=== PATIENT | male | born 1960 | race Caucasian/White ===

== ENCOUNTER → 2020-11-03 | Day surgery (SDC) | payer OTHER ==
[2020-11-01 10:01] VITALS: BMI 20.3
[~2020-11-03] MED LIST: LACTATED RINGERS 1,000 ML IV ONE; LACTATED RINGERS 1,000 ML IV SCH; PROPOFOL 10 MG/ML 20 ML VIAL IV ONE
[2020-11-03 09:58] VITALS: TEMP 97.8
--- NOTE | 2020-11-03 11:19 | P.GSHP ---
History of Present Illness H&P Date: 11/03/20 Chief Complaint: Constipation This is a 60-year-old male with history constipation. Patient presents today for colonoscopy. Past Medical History Additional Past Medical History / Comment(s): diarrhea, low potassium, History of Any Multi-Drug Resistant Organisms: None Reported Additional Past Surgical History / Comment(s): surgery for rx pelvis, Past Anesthesia/Blood Transfusion Reactions: No Reported Reaction Smoking Status: Current every day smoker - Past Family History Mother Family Medical History: No Reported History Medications and Allergies Home Medications Medication Instructions Recorded Confirmed Type Potassium Chloride [Klor-Con 20] 20 meq PO DAILY 11/01/20 11/01/20 History Allergies Allergy/AdvReac Type Severity Reaction Status Date / Time No Known Allergies Allergy Verified 11/01/20 09:53 Surgical - Exam Vital Signs Temp Pulse Resp BP Pulse Ox 97.8 F 78 18 132/87 98 11/03/20 09:57 11/03/20 09:57 11/03/20 09:57 11/03/20 09:57 11/03/20 09:57 - General well developed, well nourished, no distress - Eyes PERRL - ENT normal pinna - Neck no masses - Respiratory normal expansion - Cardiovascular Rhythm: regular - Abdomen Abdomen: soft, non tender Assessment and Plan Assessment: Constipation, will Perform colonoscopy
--- NOTE | 2020-11-03 11:34 | P.OP ---
Date of Procedure: 11/03/20 Preoperative Diagnosis: Constipation Postoperative Diagnosis: Possible colonic stricture Procedure(s) Performed: Colonoscopy Anesthesia: MAC Surgeon: Cirilo See Pathology: none sent Condition: stable Disposition: PACU Description of Procedure: He received IV sedation. Digital rectal exam was performed which revealed possible stricture of the proximal rectum. The flexible colonoscope was then placed patient anus and passed in the rectum. The colonoscope could not be advanced. There appeared to be evidence of a stricture. At this point the colonoscope was withdrawn. Patient was scheduled for a barium enema
[2020-11-03 12:06] VITALS: RESP 16
[2020-11-03 12:22] VITALS: BP 120/81; PULSE 53
--- NOTE | 2020-11-03 14:10 | FL ---
EXAMINATION TYPE: FL barium enema w air contrast DATE OF EXAM: 11/03/2020 COMPARISON: NONE HISTORY: Failed colonoscopy TECHNIQUE: Fluoroscopy. FINDINGS: Attempted barium enema was performed however the patient was unable to retain the contrast material within the colon. The rectum was the only structure opacified. Examination therefore is nond iagnostic. IMPRESSION: Limited nondiagnostic evaluation as noted above.
== END ==
LOC: ORWHC2ENDO 09:43
PROVIDERS: ATTEND Surgery
DX: K59.00 Constipation, unspecified (principal); F17.210 Nicotine dependence, cigarettes, uncomplicated
CPT/HCPCS: 74280; 45330; J2704

== ENCOUNTER → 2020-11-23 | Outpatient (CLI) | payer OTHER ==
--- NOTE | 2020-11-23 18:22 | CT ---
EXAMINATION TYPE: CT abdomen pelvis w con DATE OF EXAM: 11/23/2020 COMPARISON: None INDICATION: Rectal stricture and abdominal distention. DLP: 531 mGycm, Automated exposure control for dose reduction was used. CONTRAST: 100ml mL of Isovue 300. Study performed with Oral Contrast TECHNIQUE: Axial images were obtained from above the diaphragm to the pubic rami in the axial plane a t 5 mm thick sections. Reconstructed images are reviewed on the computer in the coronal plane. FINDINGS: Limited CT sections are obtained the lung bases. The lung bases are clear. Small amount of reflux i nto the distal esophagus is evident. CT ABDOMEN: Prominent ascites is present throughout the abdomen. Liver: Normal Spleen: Normal Pancreas: Atrophic Adrenal glands: The adrenal glands are normal. Gallbladder: Normal Kidneys: No masses are evident. Mild left hydronephrosis may be present. No cysts are present. Delay ed images were obtained through the kidneys, which remain unremarkable. Aorta: Vascular calcification is within the aorta. Inferior vena cava: Normal. CT PELVIS: Appears to be some thickened small bowel loops within the right mid abdomen. Correlate for jejunitis. Dilated small bowel loops are not evident suggests obstruction. There may be some thickening of the sigmoid colon. Consider colitis within the differential. A focal stenosis at the rectosigmoid region is not identified There are loops of bowel which are incompletely distended or lack oral contrast bonner iting their evaluation. Appendix: Not identified. No suspicious inflammatory changes are identified Urinary bladder: Decompressed with limited evaluation Genitourinary structures: Prostate not identified. Osseous structures: No suspicious lytic or sclerotic lesions. IMPRESSIONS: 1. There appears to be some thickening of the jejunum was somewhat prominent loops of bowel with mor e normal caliber ileum with some thickened wall. Correlate for jejunitis. 2. Somewhat irregular possibly thickened sigmoid and descending colon. Obstruction however is not andrés ntified. 3. Extensive ascites. 4. A mild left hydronephrosis is not excluded.
== END | disposition home or self-care (01) ==
LOC: RADCTMAIN 13:22
PROVIDERS: ATTEND Surgery
DX: K59.89 Other specified functional intestinal disorders (principal); R18.8 Other ascites
CPT/HCPCS: 74177; Q9967

== ENCOUNTER 2020-12-07 12:37 | Day surgery (SDC) | payer OTHER ==
[2020-12-07 13:09] VITALS: RESP 16; TEMP 97.3
[2020-12-07 13:15] LABS: Mean Platelet Volume 7.7; Platelet Count 461 k/uL (150-450)
[2020-12-07 13:26] LABS: African American GFR (CKD) >90 (>60 ml/min/1.73 sqM); Non-African American GFR(CKD) >90 (>60 ml/min/1.73 sqM)
[2020-12-07] MEDS: ALBUMIN HUMAN 25% 50 ML in EMPTY BAG 1 BAG IVPB SCH ×4 (13:59→15:00)
[2020-12-07 16:05] VITALS: BP 119/69; PULSE 75
--- NOTE | 2020-12-07 16:22 | US ---
EXAMINATION TYPE: US paracentesis abd w/image DATE OF EXAM: 12/07/2020 COMPARISON: NONE HISTORY: Ascites. PROCEDURE: Maximal barrier technique was utilized. The skin overlying a suitable pocket of fluid was localized with ultrasound and the overlying skin was prepped and draped. Ultrasound was utilized with sterile technique. Lidocaine was used for local anesthesia and a skin ervin made with a scalpel. Catheter was advanced under direct ultrasound guidance into a suitable pocket of fluid and approximately 7.9 liter s of serous fluid were removed. Catheter was withdrawn and hemostasis achieved. There is no immedia te complication; the patient is discharged in stable condition. IMPRESSION: STATUS POST ULTRASOUND GUIDED PARACENTESIS FOR PALLIATION OF ASCITES. THIS PROCEDURE WA S PERFORMED BY THE UNDERSIGNED.
== END 2020-12-07 15:20 | disposition home or self-care (01) ==
LOC: RADPROMAIN 12:37
PROVIDERS: ATTEND Surgery
DX: R18.8 Other ascites (principal)
CPT/HCPCS: 82565; 85049; 85610; 36415; 49083; P9047

== ENCOUNTER 2020-12-19 13:07 | Day surgery (SDC) | payer OTHER ==
[2020-12-19 13:41] LABS: Mean Platelet Volume 7.9; Platelet Count 351 k/uL (150-450)
[2020-12-19 13:48] LABS: African American GFR (CKD) >90 (>60 ml/min/1.73 sqM); Non-African American GFR(CKD) >90 (>60 ml/min/1.73 sqM)
[2020-12-19 13:53] VITALS: TEMP 98.4
[2020-12-19 14:01] LABS: Prothrombin Time 10.3 sec (9.0-12.0)
[2020-12-19 14:21] VITALS: RESP 16
[2020-12-19] MEDS: ALBUMIN HUMAN 25% 50 ML in EMPTY BAG 1 BAG IVPB SCH ×3 (14:22→14:53)
[2020-12-19 15:50] VITALS: BP 107/73; PULSE 78
--- NOTE | 2020-12-19 16:37 | US ---
EXAMINATION TYPE: US paracentesis abd w/image DATE OF EXAM: 12/19/2020 COMPARISON: NONE HISTORY: Ascites. PROCEDURE: Maximal barrier technique was utilized. The skin overlying a suitable pocket of fluid was localized with ultrasound and the overlying skin was prepped and draped. Ultrasound was utilized with sterile technique. Lidocaine was used for local anesthesia and a skin ervin made with a scalpel. Catheter was advanced under direct ultrasound guidance into a suitable pocket of fluid and approximately 7.9 liter s of serous fluid were removed. Catheter was withdrawn and hemostasis achieved. There is no immedia te complication; the patient is discharged in stable condition. IMPRESSION: STATUS POST ULTRASOUND GUIDED PARACENTESIS FOR PALLIATION OF ASCITES. THIS PROCEDURE WA S PERFORMED BY THE UNDERSIGNED.
== END 2020-12-19 15:40 | disposition home or self-care (01) ==
LOC: RADPROMAIN 13:07
PROVIDERS: ATTEND Surgery
DX: R18.8 Other ascites (principal)
CPT/HCPCS: 49083; 82565; 85049; 85610; 36415; P9047

== ENCOUNTER 2020-12-28 07:58 | Day surgery (SDC) | payer OTHER ==
[2020-12-28 08:18] VITALS: TEMP 97.5
[2020-12-28 08:50] LABS: Mean Platelet Volume 7.4; Platelet Count 416 k/uL (150-450)
[2020-12-28 09:05] LABS: African American GFR (CKD) >90 (>60 ml/min/1.73 sqM); Non-African American GFR(CKD) >90 (>60 ml/min/1.73 sqM)
[2020-12-28 09:12] LABS: INR 1.1 (<1.2); Prothrombin Time 11.8 sec (9.0-12.0)
[2020-12-28] MEDS: ALBUMIN HUMAN 25% 50 ML in EMPTY BAG 1 BAG IVPB SCH ×2 (09:52→10:07)
[2020-12-28 10:13] VITALS: RESP 16
[2020-12-28 10:28] VITALS: BP 92/61; PULSE 80
--- NOTE | 2020-12-28 11:36 | US ---
Ultrasound-guided paracentesis. DATE OF EXAM: 12/28/2020 CLINICAL HISTORY: Ascites The procedure was discussed with the patient. The risks, complications, benefits, and alternatives we re discussed and any questions were answered. Informed consent was obtained. The patient was placed s upine on the ultrasound table and prepped and draped in the usual sterile fashion. All elements of maximal barrier technique were utilized. Under ultrasound guidance, access into the right lower quadrant was obtained, via the paracentesis catheter system and direct ultrasound guidanc e. Approximately 4.8 liters of straw-colored fluid was removed. The patient was stable throughout the pr ocedure and remained stable upon discharge from Department of Radiology. IMPRESSION: Successful paracentesis under ultrasound guidance.
== END 2020-12-28 10:40 | disposition home or self-care (01) ==
LOC: RADPROMAIN 07:58
PROVIDERS: ATTEND Surgery
DX: R18.8 Other ascites (principal)
CPT/HCPCS: 82565; 85049; 85610; 36415; 49083; P9047

== ENCOUNTER 2021-01-24 12:33 | Day surgery (SDC) | payer OTHER ==
[~2021-01-24 12:33] MED LIST changes: +ALBUMIN HUMAN 25% 50 ML in EMPTY BAG 1 BAG IVPB SCH; -LACTATED RINGERS 1,000 ML IV ONE; -LACTATED RINGERS 1,000 ML IV SCH; -PROPOFOL 10 MG/ML 20 ML VIAL IV ONE
--- NOTE | 2021-01-24 13:56 | US ---
Discontinued paracentesis HISTORY: Ascites Exam was discontinued due to patient's debility.
== END 2021-01-24 14:05 | disposition home or self-care (01) ==
LOC: RADPROMAIN 12:33
PROVIDERS: ATTEND Surgery
DX: R18.8 Other ascites (principal)
CPT/HCPCS: 76705

== ENCOUNTER 2021-01-26 08:50 | Day surgery (SDC) | payer OTHER ==
[2021-01-26 09:33] VITALS: TEMP 97.6
[2021-01-26 09:35] LABS: Platelet Count 256 k/uL (150-450)
[2021-01-26 09:52] LABS: INR 1.1 (<1.2); Prothrombin Time 11.2 sec (9.0-12.0)
[2021-01-26 09:58] LABS: African American GFR (CKD) >90 (>60 ml/min/1.73 sqM); Non-African American GFR(CKD) >90 (>60 ml/min/1.73 sqM)
[2021-01-26] MEDS: ALBUMIN HUMAN 25% 50 ML in EMPTY BAG 1 BAG IVPB SCH ×3 (10:10→10:53)
[2021-01-26 11:57] VITALS: RESP 16
[2021-01-26 11:59] VITALS: BP 94/53; PULSE 59
--- NOTE | 2021-01-26 13:00 | US ---
Ultrasound-guided paracentesis. DATE OF EXAM: 01/26/2021 CLINICAL HISTORY: Ascites The procedure was discussed with the patient. The risks, complications, benefits, and alternatives we re discussed and any questions were answered. Informed consent was obtained. The patient was placed s upine on the ultrasound table and prepped and draped in the usual sterile fashion. All elements of maximal barrier technique were utilized. Under ultrasound guidance, access into the right lower quadrant was obtained, via the paracentesis catheter system and direct ultrasound guidanc e. Approximately 5.9 liters of straw-colored fluid was removed. The patient was stable throughout the pr ocedure and remained stable upon discharge from Department of Radiology. IMPRESSION: Successful paracentesis under ultrasound guidance.
== END 2021-01-26 11:45 | disposition home or self-care (01) ==
LOC: RADPROMAIN 08:50
PROVIDERS: ATTEND Surgery
DX: R18.8 Other ascites (principal)
CPT/HCPCS: 49083; 82565; 85049; 85610; 36415; P9047

== ENCOUNTER 2021-02-13 12:25 | Day surgery (SDC) | payer OTHER ==
[2021-02-13 13:46] LABS: Mean Platelet Volume 7.4; Platelet Count 281 k/uL (150-450)
[2021-02-13 13:53] VITALS: RESP 16; TEMP 98
[2021-02-13 13:53] LABS: INR 1.1 (<1.2); Prothrombin Time 11.5 sec (9.0-12.0)
[2021-02-13] MEDS: ALBUMIN HUMAN 25% 50 ML in EMPTY BAG 1 BAG IVPB SCH ×2 (14:14→14:25)
[2021-02-13 15:25] VITALS: BP 99/75; PULSE 81
--- NOTE | 2021-02-13 15:47 | US ---
Ultrasound-guided paracentesis. DATE OF EXAM: 02/13/2021 CLINICAL HISTORY: Ascites The procedure was discussed with the patient. The risks, complications, benefits, and alternatives we re discussed and any questions were answered. Informed consent was obtained. The patient was placed s upine on the ultrasound table and prepped and draped in the usual sterile fashion. All elements of maximal barrier technique were utilized. Under ultrasound guidance, access into the right lower quadrant was obtained, via the paracentesis catheter system and direct ultrasound guidanc e. Approximately 4.4 liters of straw-colored fluid was removed. The patient was stable throughout the pr ocedure and remained stable upon discharge from Department of Radiology. IMPRESSION: Successful paracentesis under ultrasound guidance.
== END 2021-02-13 15:29 | disposition home or self-care (01) ==
LOC: RADPROMAIN 12:25
PROVIDERS: ATTEND Surgery
DX: R18.8 Other ascites (principal)
CPT/HCPCS: 82565; 85049; 85610; 36415; 49083; P9047